=== PATIENT | female | born 1980 | race Caucasian/White ===

== ENCOUNTER 2016-03-31 11:42 | Emergency (ER) | payer MEDICAID ==
[2016-03-31] MEDS ORDERED: 0.9 % SODIUM CHLORIDE 1,000 ML BAG IV ONE (11:53)
--- NOTE | 2016-03-31 11:59 | Emergency Department Record ---
History of Present Illness - General Chief complaint: Head Injury Stated complaint: HEAD PLAIN Time Seen by Provider: 03/31/16 11:52 Source: Patient, Family Mode of Arrival: Ambulatory Limitations: No limitations - History of Present Illness Initial comments: 35 yo female presents with headache, nausea after a seizure yesterday. She has known seizure disorder and she take Zonogran. She has been compliant. She has a seizure about every 1-2 months. She hit her head yesterday and her left knee. Since then she has had a headache, nausea, dizziness and feels slowed. She provides the history without confusion or repeating. Her neurologist is at [facility]. The patient ambulated in to the ED to be seen but she does have some left knee bruising and pain as well MD Complaint: Head injury, Head pain, Other (seizure) Onset/Timin -: Days(s) Mechanism of Injury: Other Location: Occipital, Temporal Previous Trauma to this Area: Yes Place: Home Severity: Moderate Severity scale (1-10): 10 Quality: Aching Consistency: Constant Associated Symptoms: Amnesia, Confusion, Nausea - Related Data Home Medications Medication Instructions Recorded Confirmed Last Taken Albuterol Sulfate 0.083% [Neb] 3 ml NEB .EVERY 4-6 HOURS PRN 06/09/15 09/26/15 1 Day Ago Fluticasone/Salmeterol [Advair 1 each INH ASDIR 06/09/15 09/26/15 1 Day Ago 250-50 Diskus] Zonisamide [Zonisamide] 3 cap PO QPM 09/26/15 09/26/15 1 Day Ago Previous Rx's Medication Instructions Recorded Albuterol Sulfate [Proair Hfa] 1 - 2 puff IH .EVERY 4-6 HOURS PRN 04/29/15 #1 inhaler Naproxen [Naprosyn] 250 mg PO BID #14 tablet 06/16/15 Acetaminophen with Codeine 1 - 2 tab PO Q6H PRN #20 tab 09/26/15 [Tylenol #3] Ondansetron [Zofran Odt] 4 mg PO Q8H #15 tab.rapdis 03/31/16 Allergies/Adverse reactions: Allergies Allergy/AdvReac Type Severity Reaction Status Date / Time No Known Drug Allergies Allergy Verified 03/31/16 11:45 Travel Screening - Travel/Exposure Within Last 30 Days Have you traveled within the last 30 days?: No - Travel/Exposure Within Last Year Have you traveled outside the [place] in the last year?: No - Additonal Travel Details Have you been exposed to anyone with a communicable illness?: No - Travel Symptoms Symptom Screening: None Review of Systems Constitutional: Denies: Chills, Fever, Malaise, Weakness Eyes: Denies: Eye discharge, Eye pain, Photophobia, Vision change ENT: Denies: Congestion, Throat pain Respiratory: Denies: Cough, Dyspnea, Hemoptysis, Stridor, Wheezes Cardiovascular: Denies: Chest pain, Palpitations, Syncope Endocrine: Denies: Fatigue, Polydipsia, Polyuria Gastrointestinal: Reports: Nausea, Vomiting. Denies: Abdominal pain, Diarrhea Genitourinary: Denies: Dysuria, Urgency Musculoskeletal: Reports: Arthralgia. Denies: Back pain, Joint swelling, Myalgia, Neck pain Skin: Denies: Bruising, Change in color, Rash Neurological: Reports: As per HPI, Headache, Seizure, Vertigo. Denies: Confusion, Numbness, Paresthesias, Tingling, Tremors Psychiatric: Denies: Anxiety Hematological/Lymphatic: Denies: Blood Clots, Easy bleeding, Easy bruising, Swollen glands Past Medical History - SOCIAL HISTORY Smoking Status: Current every day smoker Alcohol Use: Occassional Drug Use: None - RESPIRATORY Hx Respiratory Disorders: Yes Hx Asthma: Yes Hx Pneumonia: Yes - CARDIOVASCULAR Hx Cardio Disorders: No - NEURO Hx Neuro Disorders: Yes Hx Seizures: Yes (last one yesterday and the 1-2 months ago) - GI Hx GI Disorders: No - Hx Genitourinary Disorders: No - ENDOCRINE Hx Endocrine Disorders: No - MUSCULOSKELETAL Hx Musculoskeletal Disorders: No - PSYCH Hx Psych Problems: No - HEMATOLOGY/ONCOLOGY Hx Hematology/Oncology Disorders: No Family Medical History Any Significant Family History?: Yes Hx Cancer: Mother Hx Diabetes: Father Physical Exam - General General Appearance: Alert, Oriented x3, Cooperative, No acute distress, Other ( She is alert, somewhat slowed with answers but she is not confused with answers) Limitations: No limitations - Head Head exam: negative: Atraumatic (2cm superficial abrasion left forehead), Normal inspection Head exam detail: Abrasion, Contusion. negative: Harrell's sign, CSF otorrhea, CSF rhinorrhea, General tenderness Image of Face/Head: 1 - 2cm superficial abrasion, tender, mild swelling - Eye Eye exam: Normal appearance, PERRL, EOMI. negative: Conjunctival injection, Nystagmus, Periorbital swelling, Periorbital tenderness, Scleral icterus Pupils: Normal accommodation. negative: Irregular, Miosis, Mydriatic, Unequal - ENT ENT exam: Normal exam, Mucous membranes moist, Normal external ear exam, Normal orophraynx, TM's normal bilaterally Ear exam: Normal external inspection. negative: External canal tenderness Nasal Exam: Normal inspection. negative: Discharge, Sinus tenderness Mouth exam: Normal external inspection, Tongue normal Teeth exam: Normal inspection. negative: Dental caries Throat exam: Normal inspection. negative: Tonsillar erythema, Tonsillar exudate - Neck Neck exam: Normal inspection, Full ROM. negative: Tenderness - Respiratory Respiratory exam: Normal lung sounds bilaterally. negative: Respiratory distress - Cardiovascular Cardiovascular Exam: Regular rate, Normal rhythm, Normal heart sounds - GI/Abdominal GI/Abdominal exam: Soft, Normal bowel sounds. negative: Tenderness - Rectal Rectal exam: Deferred - exam: Deferred - Extremities Extremities exam: Normal inspection, Full ROM, Normal capillary refill. negative: Tenderness Image of Full Body: 1 - medial knee bruising, full ROM, patella intact and not bruised or swollen - Back Back exam: Reports: Normal inspection, Full ROM. Denies: CVA tenderness (R), CVA tenderness (L), Muscle spasm, Paraspinal tenderness, Rash noted, Tenderness , Vertebral tenderness - Neurological Neurological exam: Alert, CN II-XII intact, Oriented X3, Other (slowed but accurate with answers, no confusion, knows family, medical history, medications) . negative: Motor sensory deficit - Psychiatric Psychiatric exam: Depressed - Skin Skin exam: Abrasion Course Vital Signs 03/31/16 11:46 Temperature 98.1 F Pulse Rate 72 Respiratory 14 Rate Blood Pressure 121/80 Pulse Ox 100 - Reevaluation(s) Reevaluation #1: No acute changes on the labs The CBC,CMP and UCG were negative [facility] records were recieved No acute changes on a HCT, Facial CT. Chronic sinusitis. 06/21/15 03/31/16 13:10 Reevaluation #2: On recheck she is alert, speaking in normal jess without hesitation. No signs of confusion. Still with a frontal headache. 03/31/16 13:13 Reevaluation #3: CT scan of the head is negative Knee XR is negative The patient likely has concussion symptoms She was given the results and we discussed concussion symptoms and home care as well as follow up We discussed reasons to return as well. 03/31/16 13:27 Medical Decision Making - Lab Data Result diagrams: 03/31/16 12:00 03/31/16 12:00 Disposition Disposition: Discharge Clinical Impression: Concussion Qualifiers: Encounter type: initial encounter Loss of consciousness presence/duration: without LOC Qualified Code(s): S06.0X0A - Concussion without loss of consciousness, initial encounter Disposition: Home, Self-Care Condition: (1) Good Instructions: Concussion (ED) Additional Instructions: Rest and Stay well hydrated Avoid over stimulation Call your doctor and your neurologist Saturday to follow up this ER visit. Prescriptions: Ondansetron [Zofran Odt] 4 mg PO Q8H #15 tab.rapdis Forms: Patient Portal Access Time of Disposition: 13:28
[2016-03-31] MEDS: ONDANSETRON HCL IV 4 MG/2 ML VIAL IVP ONE ×2 (12:11→14:00)
[2016-03-31 12:14] LABS: BASO % 0.2 % (0-6); EOS % 3.4 % (0-6); GRAN % 62.9 % (47-80); HEMOGLOBIN 12.6 gm/dl (11.6-16.0); LYMPH % 27.8 % (16-45); MEAN CELL VOLUME 92.5 fl (81-97); MEAN CORPUSCULAR HEMOGLOBIN 31.5 pg (27-33); MEAN CORPUSCULAR HGB CONC 34.1 g/dl (32-36); MEAN PLATELET VOLUME 9.6 fl (7.4-10.4); MONO % 5.7 % (0-9); PLATELET COUNT 260 K/uL (130-400); RED CELL DISTRIBUTION WIDTH 12.9 % (11.5-14.5); WHITE BLOOD COUNT W/O DIFF 5.7 K/uL (4.2-12.2)
[2016-03-31 12:26] LABS: ANION GAP 13.9 (7-16); BLOOD UREA NITROGEN 12 mg/dL (7-17); CARBON DIOXIDE 21.1 mmol/L (22-30); CREATININE 0.8 mg/dL (0.52-1.04); EST GLOMERULAR FILTRATION RATE > 60 ml/min; GLUCOSE,RANDOM 86 mg/dL (70-110)
[2016-03-31] MEDS ORDERED: ACETAMINOPHEN 1,000 MG in SODIUM CHLORIDE 1 BAG IVPB ONE (13:14)
[2016-03-31] MEDS ORDERED: ONDANSETRON HCL IV 4 MG/2 ML VIAL IVP ONE (13:59)
--- NOTE | 2016-04-04 10:21 | RADIOLOGY REPORT ---
EXAM: LEFT KNEE, THREE VIEWS HISTORY: FALL. SEIZURE. TECHNIQUE: Three views of the left knee were obtained. FINDINGS: No knee joint effusion. No fracture or malalignment. The joint spaces are maintained. IMPRESSION: NO ACUTE LEFT KNEE ABNORMALITY. JOB NUMBER: [id number] [facility]
--- NOTE | 2016-04-04 10:25 | CT SCAN REPORT ---
EXAM: CT OF THE HEAD WITHOUT CONTRAST HISTORY: FALL. SEIZURE. TECHNIQUE: Routine noncontrast CT images of the head were obtained. Comparison: 06/16/15. FINDINGS: Mild right frontal scalp hematoma. The ventricles, basal cisterns, and sulci are of normal size, shape and configuration. No midline shift or mass effect. The carlin white differentiation is well maintained without evidence of acute ischemia. No intracranial mass or hemorrhage. The orbital contents are unremarkable. The paranasal sinuses and mastoid air cells are clear. IMPRESSION: RIGHT FRONTAL SCALP HEMATOMA. NO ACUTE INTRACRANIAL ABNORMALITY. JOB NUMBER: [id number] [facility]
== END 2016-03-31 14:26 | disposition home or self-care (01) ==
LOC: ER 11:42
DX: S06.0X0A Concussion without loss of consciousness, initial encounter (principal); S80.02XA Contusion of left knee, initial encounter; R11.0 Nausea; R42 Dizziness and giddiness; R41.3 Other amnesia; W19.XXXA Unspecified fall, initial encounter; G40.909 Epilepsy, unspecified, not intractable, without status epilepticus
CPT/HCPCS: 99284 ×2; 96374; 96375; 96361; 85025; 80048; 84703; 73562; 70450; J2405; J7030

== ENCOUNTER 2016-10-15 20:47 | Emergency (ER) | payer MEDICAID ==
--- NOTE | 2016-10-15 21:14 | Emergency Department Record ---
History of Present Illness - General Chief Complaint: Abdominal Pain Stated Complaint: LOWER ABD PAIN L SIDE Time Seen by Provider: 10/15/16 20:55 Source: Patient Mode of Arrival: Ambulatory Limitations: No limitations - History of Present Illness Initial Comments: The patient is here due to abdominal pain for 9 hours. The pain has been constant and is a sharp stabbing pain in the LLQ. It intermittently radiates to the back at times. The patient does have nausea but no vomiting or diarrhea. She denies any dysuria, vaginal discharge, bleeding or any hx of similar problems. MD Complaint: Abdominal pain Onset/Timin -: Hour(s) Location: Suprapubic Radiation: Back Quality: Sharp, Stabbing Consistency: Constant Improves With: Nothing Worsens With: Movement Associated Symptoms: Nausea - Related Data LMP (females 10-50): Last week Home Medications Medication Instructions Recorded Confirmed Last Taken Albuterol Sulfate 0.083% [Neb] 3 ml NEB .EVERY 4-6 HOURS PRN 06/09/15 10/15/16 1 Day Ago ~03/30/16 Brivaracetam [Briviact] 75 mg PO BID 10/15/16 10/15/16 10/14/16 Lamotrigine [Lamictal] 100 mg PO BID 10/15/16 10/15/16 10/14/16 Paroxetine HCl [Paxil] 100 mg PO DAILY 10/15/16 10/15/16 10/14/16 Previous Rx's Medication Instructions Recorded Albuterol Sulfate [Proair Hfa] 1 - 2 puff IH .EVERY 4-6 HOURS PRN 04/29/15 #1 inhaler Naproxen [Naprosyn] 250 mg PO BID #14 tablet 06/16/15 Metronidazole [Flagyl] 500 mg PO BID #14 tablet 10/15/16 Allergies Allergy/AdvReac Type Severity Reaction Status Date / Time No Known Drug Allergies Allergy Verified 03/31/16 11:45 Travel Screening - Travel/Exposure Within Last 30 Days Have you traveled within the last 30 days?: No - Travel Symptoms Symptom Screening: None Review of Systems Constitutional: Denies: Chills, Fever Eyes: Denies: Eye discharge ENT: Denies: Congestion Respiratory: Denies: Cough, Dyspnea Past Medical History - SOCIAL HISTORY Smoking Status: Current every day smoker - RESPIRATORY Hx Respiratory Disorders: Yes Hx Asthma: Yes Hx Pneumonia: Yes - CARDIOVASCULAR Hx Cardio Disorders: No - NEURO Hx Neuro Disorders: Yes Hx Seizures: Yes (10/15/16-last sz 1.5wks ago) - GI Hx GI Disorders: No - Hx Genitourinary Disorders: No - ENDOCRINE Hx Endocrine Disorders: No - MUSCULOSKELETAL Hx Musculoskeletal Disorders: No - PSYCH Hx Psych Problems: No - HEMATOLOGY/ONCOLOGY Hx Hematology/Oncology Disorders: No Family Medical History Any Significant Family History?: Yes Hx Cancer: Mother Hx Diabetes: Father Physical Exam - General General Appearance: Alert, Oriented x3, Cooperative, No acute distress - Head Head exam: Atraumatic, Normocephalic, Normal inspection - Eye Eye exam: Normal appearance, PERRL - Neck Neck exam: Normal inspection, Full ROM. negative: Tenderness - Respiratory Respiratory exam: Normal lung sounds bilaterally. negative: Respiratory distress - Cardiovascular Cardiovascular Exam: Regular rate, Normal rhythm, Normal heart sounds - GI/Abdominal GI/Abdominal exam: Soft, Normal bowel sounds, Tenderness (There is mild tenderness in the LLQ but the abdomen is very soft.). negative: Distended, Rebound, Rigid - exam: Adnexal tenderness (L) (mild.), Normal bimanual exam, Normal external exam, Normal speculum exam. negative: Abnormal external exam, Adnexal mass (L) , Adnexal mass (R), Adnexal tenderness (R), Cervical discharge, cervical motion tenderness, Enlarged uterus, Vaginal bleeding, Vaginal discharge, Vaginal erythema - Extremities Extremities exam: Normal inspection, Full ROM, Normal capillary refill. negative: Tenderness - Neurological Neurological exam: Alert, Normal gait. negative: Abnormal gait, Motor sensory deficit Course Vital Signs 10/15/16 20:54 Temperature 98.3 F Pulse Rate [ 84 Pulse Ox Probe] Respiratory 20 Rate Blood Pressure 126/81 [Right Thigh] Pulse Ox 100 - Reevaluation(s) Reevaluation #1: The patient is doing very well at this time. Her pain is much improved and she is resting comfortably. I explained to her that her tests are all WNL's including the CT. I also explained to her that I am concerned that she may have a L ovary torsion even though the ovary does appear normal on CT. Due to that fact I did recommend transfer to [facility] for an emergent pelvic US which we are unable to perform here. The risk of NOT being transferred is that if it is a torsion by waiting the ovary could and she may need it removed. The patient understands the risks and would like to wait and be seen here at [facility] in the ED in the morning for the US. She fully understands that by waiting she may need the ovary removed which could be a bigger surgery than just de-torsing the ovary. The patient states since she is feeling a lot better now she would like to wait and if the pain worsens tonight she will proceed to [facility] for the US. 10/15/16 22:47 Medical Decision Making - Lab Data Result diagrams: 10/15/16 21:25 10/15/16 21:28 Disposition Disposition: Discharge Clinical Impression: Pelvic pain Disposition: Home, Self-Care Condition: (1) Good Instructions: Abdominal Pain (ED) Additional Instructions: Please use your home Naprosyn for pain along with the [place] if needed. Please return to the ER at 9am for a 10am Ultrasound. Please drink plenty of fluids prior so your bladder may be full for the test. Please return to the ER sooner for any increased pain, fever, or vomiting. Take the Flagyl as directed. Prescriptions: Metronidazole [Flagyl] 500 mg PO BID #14 tablet Forms: Patient Portal Access Time of Disposition: 22:42 Quality - Quality Measures Quality Measures: N/A - Blood Pressure Screening View Details: Yes Blood Pressure Classification: Normal BP Reading Systolic Measurement: 114 Diastolic Measurement: 73 Screening for High Blood Pressure: < Normal BP, F/U Not Required > [G8783] Normal BP Follow-up Interventions: No follow-up required
[2016-10-15] MEDS: 0.9 % SODIUM CHLORIDE 1,000 ML BAG IV ONE (21:29)
[2016-10-15] MEDS: ONDANSETRON HCL IV 4 MG/2 ML VIAL IV ONE (21:29)
[2016-10-15 21:33] LABS: URINE APPEARANCE CLEAR; URINE BILIRUBIN NEGATIVE (NEGATIVE); URINE BLOOD NEGATIVE (NEGATIVE); URINE COLOR YELLOW; URINE GLUCOSE (UA) NEGATIVE (NEGATIVE); URINE KETONE NEGATIVE (NEGATIVE); URINE LEUKOCYTE ESTERASE NEGATIVE (NEGATIVE); URINE NITRITE NEGATIVE (NEGATIVE); URINE PROTEIN NEGATIVE (NEGATIVE); URINE UROBILINOGEN 0.2 E.U./dL (0.20 - 1.00)
[2016-10-15 21:34] LABS: HCG,QUALITATIVE URINE NEGATIVE (NEGATIVE)
[2016-10-15 21:35] LABS: BASO % 0.2 % (0-6); GRAN % 50.6 % (47-80); HEMATOCRIT 35.5 % (35.0-47.0); HEMOGLOBIN 11.8 gm/dl (11.6-16.0); MEAN CELL VOLUME 90.8 fl (81-97); MEAN CORPUSCULAR HEMOGLOBIN 30.2 pg (27-33); MEAN CORPUSCULAR HGB CONC 33.2 g/dl (32-36); MEAN PLATELET VOLUME 9.5 fl (7.4-10.4); MONO % 7.2 % (0-9); PLATELET COUNT 251 K/uL (130-400); RED BLOOD COUNT 3.91 M/uL (3.80-5.40); RED CELL DISTRIBUTION WIDTH 13.9 % (11.5-14.5); WHITE BLOOD COUNT W/O DIFF 5.4 K/uL (4.2-12.2)
[2016-10-15] MEDS: KETOROLAC 30 MG/ML VIAL IVP ONE (21:41)
[2016-10-15 21:43] LABS: ANION GAP 10.5 (7-16); BLOOD UREA NITROGEN 15 mg/dL (7-17); CARBON DIOXIDE 25.5 mmol/L (22-30); CREATININE 0.7 mg/dL (0.52-1.04); EST GLOMERULAR FILTRATION RATE > 60 ml/min; GLUCOSE,RANDOM 90 mg/dL (70-110)
[2016-10-15] MEDS: HYDROMORPHONE HCL 1 MG/ML CPJ IVP ONE (22:23)
[2016-10-15] MEDS: HYDROCODONE/APAP 5/325MG TABLET PO ONE (22:51)
[2016-10-15] MEDS: ONDANSETRON 4 MG ODT TABLET SL ONE (22:53)
--- NOTE | 2016-10-17 00:22 | CT SCAN REPORT ---
EXAM: CT SCAN ABDOMEN/PELVIS WO CONTRAST HISTORY: LOW ABDOMINAL PAIN. TECHNIQUE: SEQUENTIAL AXIAL IMAGES WERE OBTAINED FROM THE DIAPHRAGMS THROUGH THE ISCHIORECTAL FOSSA WITHOUT INTRAVENOUS OR ORAL CONTRAST ADMINISTRATION. FINDINGS: Visualized lung bases appear normal. The non-opacified liver, gallbladder, pancreas, and spleen appear normal. The adrenal glands and kidneys appear normal. There are no CT findings suggestive of obstructive uropathy. The small bowel appears normal. The appendix is visualized and appears normal. The colon appears normal. There is right adnexal cyst measuring 2.6 cm. The uterus appears normal. The urinary bladder appears normal. The osseous structures are normal. IMPRESSION: NO ACUTE ABDOMINAL OR PELVIC DISEASE PROCESS. JOB NUMBER: [id number] [facility]
== END 2016-10-15 23:06 | disposition home or self-care (01) ==
LOC: ER 20:47
DX: R10.2 Pelvic and perineal pain (principal); R11.0 Nausea; R10.32 Left lower quadrant pain
CPT/HCPCS: 74176; 80048; 81003; 81025; 85025; 87210; 96374; 96375; 99284; J1170; J1885; J2405; J7030

== ENCOUNTER 2017-01-07 12:08 | Emergency (ER) | payer MEDICAID ==
--- NOTE | 2017-01-07 12:36 | Emergency Department Record ---
History of Present Illness - General Chief complaint: ENT Stated complaint: SORE THROAT Time Seen by Provider: 01/07/17 12:23 Source: Patient Mode of Arrival: Ambulatory Limitations: No limitations - History of Present Illness Initial comments: The patient has had a moderate ST for 3 days. She is having some mild ear pain, [place], neck aching but no fever, cough, or runny nose. Her son has the same illness. MD complaint: Sore throat Onset/Timin -: Days(s) Location: R ear, L ear, Throat Severity: Moderate Severity scale (1-10): 6 Quality: Aching Consistency: Constant Improves with: None Worsens with: None Associated Symptoms: Fever, Pain with swallowing, Sore throat - Related Data Previous Rx's Medication Instructions Recorded Albuterol Sulfate [Proair Hfa] 1 - 2 puff IH .EVERY 4-6 HOURS PRN 04/29/15 #1 inhaler Naproxen [Naprosyn] 250 mg PO BID #14 tablet 06/16/15 Metronidazole [Flagyl] 500 mg PO BID #14 tablet 10/15/16 Cephalexin [Keflex] 500 mg PO TID #21 cap 01/07/17 Allergies Allergy/AdvReac Type Severity Reaction Status Date / Time No Known Drug Allergies Allergy Verified 01/07/17 12:17 Travel Screening - Travel/Exposure Within Last 30 Days Have you traveled within the last 30 days?: No Review of Systems Constitutional: Denies: Chills, Fever Eyes: Denies: Eye discharge ENT: Denies: Congestion Respiratory: Denies: Cough, Dyspnea Past Medical History - SOCIAL HISTORY Smoking Status: Current every day smoker Alcohol Use: None Drug Use: None - RESPIRATORY Hx Respiratory Disorders: Yes Hx Asthma: Yes Hx Pneumonia: Yes - CARDIOVASCULAR Hx Cardio Disorders: No - NEURO Hx Neuro Disorders: Yes Hx Seizures: Yes - GI Hx GI Disorders: No - Hx Genitourinary Disorders: No - ENDOCRINE Hx Endocrine Disorders: No - MUSCULOSKELETAL Hx Musculoskeletal Disorders: No - PSYCH Hx Psych Problems: No - HEMATOLOGY/ONCOLOGY Hx Hematology/Oncology Disorders: No Family Medical History Any Significant Family History?: Yes Hx Cancer: Mother Hx Diabetes: Father Physical Exam - General General Appearance: Alert, Oriented x3, Cooperative, No acute distress - Head Head exam: Atraumatic, Normocephalic, Normal inspection - Eye Eye exam: Normal appearance, PERRL - ENT ENT exam: Mucous membranes moist, Normal external ear exam, TM's normal bilaterally. negative: Normal exam, Normal orophraynx Ear exam: Normal external inspection. negative: External canal tenderness Nasal Exam: Normal inspection. negative: Discharge Throat exam: Tonsillar erythema. negative: Normal inspection, Tonsillomegaly, Tonsillar exudate, R peritonsillar mass, L peritonsillar mass - Neck Neck exam: Normal inspection, Full ROM, Tenderness (There is mild diffuse bilateral tenderness but no swelling, erythema, or enlarged lymph nodes.). negative: Lymphadenopathy, Meningismus - Respiratory Respiratory exam: Normal lung sounds bilaterally. negative: Respiratory distress - Cardiovascular Cardiovascular Exam: Regular rate, Normal rhythm, Normal heart sounds - GI/Abdominal GI/Abdominal exam: Soft, Normal bowel sounds. negative: Tenderness - Extremities Extremities exam: Normal inspection Course Vital Signs 01/07/17 12:18 Temperature 98.9 F Pulse Rate 77 Respiratory 18 Rate Blood Pressure 127/66 Pulse Ox 97 - Reevaluation(s) Reevaluation #1: I did discuss the positive Strep test with the patient and the need for F/U if not better. 01/07/17 12:54 Medical Decision Making - Data Complexity MDM Data: Labs Ordered and/or Reviewed (Strep test Pos.) Disposition Disposition: Discharge Clinical Impression: Strep sore throat Disposition: Home, Self-Care Condition: (1) Good Instructions: Strep Throat (ED) Additional Instructions: Please take Tylenol or Motrin for pain. Please take the Keflex as directed. Please see your PCP for recheck later this week if not better and return to the ER if worse. Prescriptions: Cephalexin [Keflex] 500 mg PO TID #21 cap Forms: Patient Portal Access Time of Disposition: 12:56 Quality - Quality Measures Quality Measures: N/A - Blood Pressure Screening View Details: Yes Does Patient Have Any of the Following: No Blood Pressure Classification: Pre-Hypertensive BP Reading Systolic Measurement: 127 Diastolic Measurement: 66 Screening for High Blood Pressure: < Pre-Hypertensive BP, F/U Documented > [ G8950] Pre-Hypertensive Follow-up Interventions: Referral to alternative/primary care provider.
== END 2017-01-07 13:06 | disposition home or self-care (01) ==
LOC: ER 12:08
DX: J02.0 Streptococcal pharyngitis (principal); F17.210 Nicotine dependence, cigarettes, uncomplicated
CPT/HCPCS: 87880; 99282

== ENCOUNTER 2017-02-20 10:53 | Emergency (ER) | payer MEDICAID ==
--- NOTE | 2017-02-20 11:30 | Emergency Department Record ---
History of Present Illness - General Chief Complaint: General Stated Complaint: FACIAL INJURY AFTER SEIZURE Time Seen by Provider: 02/20/17 11:04 Mode of Arrival: Ambulatory - History of Present Illness Initial Comments: siezure yesterday and bruising on the right foreheada nd periorbital area and right conjunctivea is red with FB sensation. visual acuity right 20/100 and left eye is 20/25 - Related Data Home Medications: Previous Rx's Medication Instructions Recorded Sulfacetamide Sodium [Bleph-10] 1 - 2 drop AFFEYE QID #5 ml 02/20/17 Allergies/Adverse Reactions: Allergies Allergy/AdvReac Type Severity Reaction Status Date / Time No Known Drug Allergies Allergy Verified 01/07/17 12:17 Travel Screening - Travel/Exposure Within Last 30 Days Have you traveled within the last 30 days?: No Review of Systems Reviewed: No additional complaints except as noted below Constitutional: Reports: As per HPI. Denies: Chills, Fever, Malaise, Night sweats, Weakness, Weight change Eyes: Reports: As per HPI. Denies: Eye discharge, Eye pain, Photophobia, Vision change ENT: Reports: As per HPI, Other (slow speach). Denies: Congestion, Dental pain , Ear pain, Epistaxis, Hearing loss, Throat pain Respiratory: Reports: As per HPI. Denies: Cough, Dyspnea, Hemoptysis, Stridor, Wheezes Cardiovascular: Reports: As per HPI. Denies: Arrhythmia, Chest pain, Dyspnea on exertion, Edema, Murmurs, Orthopnea, Palpitations, Paroxysmal nocturnal dyspnea, Rheumatic Fever, Syncope Endocrine: Reports: As per HPI. Denies: Fatigue, Heat or cold intolerance, Polydipsia, Polyuria Gastrointestinal: Reports: As per HPI. Denies: Abdominal pain, Constipation, Diarrhea, Hematemesis, Hematochezia, Melena, Nausea, Vomiting Genitourinary: Reports: As per HPI. Denies: Abnormal menses, Discharge, Dyspareunia, Dysuria, Frequency, Hematuria, Incontinence, Retention, Urgency Musculoskeletal: Reports: As per HPI. Denies: Arthralgia, Back pain, Gout, Joint swelling, Myalgia, Neck pain Skin: Reports: As per HPI. Denies: Bruising, Change in color, Change in hair/ nails, Lesions, Pruritus, Rash Neurological: Reports: As per HPI. Denies: Abnormal gait, Confusion, Headache, Numbness, Paresthesias, Seizure, Tingling, Tremors, Vertigo, Weakness Psychiatric: Reports: As per HPI. Denies: Anxiety, Auditory hallucinations, Depression, Homicidal thoughts, Suicidal thoughts, Visual hallucinations Hematological/Lymphatic: Reports: As per HPI. Denies: Anemia, Blood Clots, Easy bleeding, Easy bruising, Swollen glands Past Medical History - SOCIAL HISTORY Smoking Status: Current every day smoker Alcohol Use: None Drug Use: None - RESPIRATORY Hx Respiratory Disorders: Yes Hx Asthma: Yes Hx Pneumonia: Yes - CARDIOVASCULAR Hx Cardio Disorders: No - NEURO Hx Neuro Disorders: Yes Hx Seizures: Yes (Last February 2017) - GI Hx GI Disorders: No - Hx Genitourinary Disorders: No - ENDOCRINE Hx Endocrine Disorders: No - MUSCULOSKELETAL Hx Musculoskeletal Disorders: No - PSYCH Hx Psych Problems: No - HEMATOLOGY/ONCOLOGY Hx Hematology/Oncology Disorders: No Family Medical History Any Significant Family History?: Yes Hx Cancer: Mother Hx Diabetes: Father Physical Exam - General General Appearance: Alert, Oriented x3, Cooperative, No acute distress, Other ( right periorbital swelling) - Head Head exam: Normal inspection - Eye Eye exam: Normal appearance, PERRL, Conjunctival injection, Periorbital swelling , Periorbital tenderness, Other (tearing) Pupils: Normal accommodation - ENT ENT exam: Normal exam, Mucous membranes moist, Normal external ear exam, Normal orophraynx, TM's normal bilaterally Ear exam: Normal external inspection. negative: External canal tenderness Nasal Exam: Normal inspection. negative: Discharge, Sinus tenderness Mouth exam: Normal external inspection, Tongue normal Teeth exam: Normal inspection. negative: Dental caries Throat exam: Normal inspection. negative: Tonsillar erythema, Tonsillar exudate - Neck Neck exam: Normal inspection, Full ROM. negative: Tenderness - Respiratory Respiratory exam: Normal lung sounds bilaterally. negative: Respiratory distress - Cardiovascular Cardiovascular Exam: Regular rate, Normal rhythm, Normal heart sounds - GI/Abdominal GI/Abdominal exam: Soft, Normal bowel sounds. negative: Tenderness - Rectal Rectal exam: Deferred - exam: Deferred - Extremities Extremities exam: Normal inspection, Full ROM, Normal capillary refill. negative: Tenderness - Back Back exam: Reports: Normal inspection, Full ROM. Denies: Muscle spasm, Rash noted, Tenderness - Neurological Neurological exam: Alert, Normal gait, Oriented X3, Reflexes normal - Psychiatric Psychiatric exam: Normal affect, Normal mood - Skin Skin exam: Dry, Intact, Normal color, Warm Course Vital Signs 02/20/17 10:55 Temperature 97.8 F Pulse Rate 88 Respiratory 18 Rate Blood Pressure 134/72 Pulse Ox 100 - Reevaluation(s) Reevaluation #1: flurescein staining right eye inferior conjuctiveal area and cornea no uptake, 02/20/17 12:34 Medical Decision Making - Data Complexity MDM Data: Labs Ordered and/or Reviewed, X-Ray Ordered and/or Reviewed (CT of head and face negative for acute changes) - Lab Data Result diagrams: 02/20/17 11:35 02/20/17 11:35 Disposition Clinical Impression: Seizure disorder, Decreased visual acuity Corneal abrasion, right Qualifiers: Encounter type: initial encounter Qualified Code(s): S05.01XA - Injury of conjunctiva and corneal abrasion without foreign body, right eye, initial encounter Periorbital contusion of right eye Qualifiers: Encounter type: initial encounter Qualified Code(s): S05.11XA - Contusion of eyeball and orbital tissues, right eye, initial encounter Disposition: Home, Self-Care Condition: (1) Good Instructions: Head Injury (ED) Additional Instructions: follow up with Dr Kaur tomorrow if possible Prescriptions: Sulfacetamide Sodium [Bleph-10] 1 - 2 drop AFFEYE QID #5 ml Forms: Patient Portal Access Time of Disposition: 12:41 Quality - Quality Measures Quality Measures: N/A - Blood Pressure Screening Does Patient Have Any of the Following: No Blood Pressure Classification: Pre-Hypertensive BP Reading Systolic Measurement: 134 Diastolic Measurement: 72 Screening for High Blood Pressure: < Pre-Hypertensive BP, F/U Documented > [ G8950] Pre-Hypertensive Follow-up Interventions: Referral to alternative/primary care provider.
[2017-02-20 11:44] LABS: BASO % 0.2 % (0-6); EOS % 1.8 % (0-6); GRAN % 64.4 % (47-80); HEMATOCRIT 37.3 % (35.0-47.0); HEMOGLOBIN 12.6 gm/dl (11.6-16.0); LYMPH % 27.9 % (16-45); MEAN CELL VOLUME 90.3 fl (81-97); MEAN CORPUSCULAR HEMOGLOBIN 30.5 pg (27-33); MEAN CORPUSCULAR HGB CONC 33.8 g/dl (32-36); MEAN PLATELET VOLUME 9.3 fl (7.4-10.4); MONO % 5.7 % (0-9); PLATELET COUNT 248 K/uL (130-400); RED BLOOD COUNT 4.13 M/uL (3.80-5.40); RED CELL DISTRIBUTION WIDTH 13.6 % (11.5-14.5); WHITE BLOOD COUNT W/O DIFF 6.2 K/uL (4.2-12.2)
[2017-02-20 11:57] LABS: BLOOD UREA NITROGEN 12 mg/dL (6-20); CREATININE 0.7 mg/dL (0.5-0.9); EST GLOMERULAR FILTRATION RATE > 60 mL/min
[2017-02-20 12:00] LABS: GLUCOSE,RANDOM 96 mg/dL (74-109)
--- NOTE | 2017-02-21 08:03 | CT SCAN REPORT ---
EXAM: CT OF THE HEAD WITHOUT CONTRAST HISTORY: SEIZURE. FALL. TECHNIQUE: Routine noncontrast CT examination of the head was performed. Comparison: CT of the head without contrast dated 03/31/16. FINDINGS: The ventricles and subarachnoid spaces are normal in size. No area of abnormally increased or decreased attenuation is noted throughout the brain substance. No new abnormal extraaxial fluid collection nor skull fracture is seen. A small left choroidal fissure cyst is redemonstrated, stable. This measures 5 mm in diameter. The visualized paranasal sinuses and mastoid air cells are clear. There is mild soft tissue swelling in the right infraorbital region. IMPRESSION: 1. NO ACUTE INTRACRANIAL ABNORMALITY NOR SKULL FRACTURE WITHOUT CHANGE IN APPEARANCE OF THE BRAIN SINCE 03/31/16. 2. MILD SOFT TISSUE SWELLING IN THE RIGHT PERIORBITAL/INFRAORBITAL REGION. JOB NUMBER: [id number] MTDD
--- NOTE | 2017-02-21 08:09 | CT SCAN REPORT ---
EXAM: CT OF THE FACIAL BONES WITHOUT CONTRAST HISTORY: SEIZURE. FALL WITH TRAUMA TO RIGHT SIDE OF FACE. TECHNIQUE: Thin collimation helical CT examination of the facial bones was performed in the axial plane without intravenous contrast. Coronal and sagittal reformatted images are generated and reviewed. Comparison: Same day CT of the head. CT of the head without contrast dated . FINDINGS: The osseous structures are normally mineralized. No acute facial bone fracture is seen. The paranasal sinuses are well developed with the exception of hypoplasia of the right frontal sinus. There is minimal mucosal thickening in each maxillary sinus. The paranasal sinuses are otherwise well aerated. The ostiomeatal complexes, frontal recesses, and sphenoethmoidal recesses are widely patent. The ocular globes are intact and symmetrically positioned. The retrobulbar fat is clear. The optic nerves and extraocular muscles are symmetric and normal in appearance. Mild right periorbital/infraorbital soft tissue swelling is present. No subcutaneous emphysema or foreign body is seen. There is mild rightward deviation of the superior aspect of the nasal septum, developmental. Dental caries is suggested in several teeth, right greater than left. IMPRESSION: 1. MILD RIGHT PERIORBITAL/INFRAORBITAL SOFT TISSUE SWELLING. 2. NO FACIAL BONE FRACTURE. 3. MINOR MUCOSAL THICKENING IN THE MAXILLARY SINUSES. JOB NUMBER: [id number] AND [id number] [facility]
== END 2017-02-20 12:51 | disposition home or self-care (01) ==
LOC: ER 10:53
DX: S05.01XA Injury of conjunctiva and corneal abrasion without foreign body, right eye, initial encounter (principal); S05.11XA Contusion of eyeball and orbital tissues, right eye, initial encounter; G40.909 Epilepsy, unspecified, not intractable, without status epilepticus; H54.7 Unspecified visual loss; W19.XXXA Unspecified fall, initial encounter
CPT/HCPCS: 70450; 70486; 80048; 85025; 99283; 99284

== ENCOUNTER 2018-07-14 12:22 | Emergency (ER) | payer MEDICAID, MEDICARE ==
[2018-07-14] MEDS ORDERED: ALBUTEROL SULFATE (0.083%) 2.5 MG/3 ML NEB INH ONE (12:36)
--- NOTE | 2018-07-14 12:40 | Emergency Department Record ---
History of Present Illness - General Chief complaint: Edema Stated complaint: swollen feet and hands, chest pressure Time Seen by Provider: 07/14/18 12:30 Source: Patient Mode of Arrival: Ambulatory Limitations: No limitations - History of Present Illness Initial comments: The patient is here due to not feeling well for 3 days. She has had a dry cough with mild chest spasms mainly when coughing. She does feel mildly SOB at times but denies any chest pain, fever, chills, or SOB. The patient also has had the feeling that her hands and feet are swollen. She denies any calf or thigh pain or any recent travel. MD Complaint: Extremity swelling Onset/Timin -: Days(s) Location: Bilateral, Foot, Hand History of Same: No Radiation: None Severity scale (1-10): 7 Quality: Dull Consistency: Intermittent Improves with: Nothing Worsens with: Nothing Associated Symptoms: Denies other symptoms - Related Data Home Medications Medication Instructions Recorded Confirmed Last Taken Albuterol Sulfate [Proair Hfa] 1 puff IH DAILY 07/14/18 07/14/18 Unknown Fremanezumab-Vfrm [Ajovy] 225 mg IM MONTHLY 07/14/18 07/14/18 Unknown Zonisamide 100 mg PO DAILY 07/14/18 07/14/18 Unknown Previous Rx's Medication Instructions Recorded Albuterol Sulfate [Proair Hfa] 2 puff IH QID PRN #1 inhaler 07/14/18 Prednisone [Prednisone 20Mg] 40 mg PO DAILY #10 tab 07/14/18 Allergies Allergy/AdvReac Type Severity Reaction Status Date / Time No Known Drug Allergies Allergy Verified 01/07/17 12:17 Travel Screening - Travel/Exposure Within Last 30 Days Have you traveled within the last 30 days?: No Review of Systems Constitutional: Denies: Chills, Fever Eyes: Denies: Eye discharge ENT: Reports: Congestion Respiratory: Reports: Cough. Denies: Dyspnea, Hemoptysis Cardiovascular: Reports: Dyspnea on exertion. Denies: Arrhythmia, Chest pain, Orthopnea Endocrine: Reports: Fatigue Gastrointestinal: Denies: Nausea Genitourinary: Denies: Dysuria Musculoskeletal: Denies: Arthralgia Skin: Denies: Bruising Past Medical History - SOCIAL HISTORY Smoking Status: Current every day smoker Alcohol Use: Rare Drug Use Detail:: Marijuana - RESPIRATORY Hx Respiratory Disorders: Yes Hx Asthma: Yes Hx Pneumonia: Yes - CARDIOVASCULAR Hx Cardio Disorders: No - NEURO Hx Neuro Disorders: Yes Hx Seizures: Yes (Last February 2017) - GI Hx GI Disorders: No - Hx Genitourinary Disorders: No - ENDOCRINE Hx Endocrine Disorders: No - MUSCULOSKELETAL Hx Musculoskeletal Disorders: No - PSYCH Hx Psych Problems: No - HEMATOLOGY/ONCOLOGY Hx Hematology/Oncology Disorders: No Family Medical History Any Significant Family History?: Yes Hx Cancer: Mother Hx Diabetes: Father Physical Exam - General General Appearance: Alert, Oriented x3, Cooperative, No acute distress - Head Head exam: Atraumatic, Normocephalic, Normal inspection - Eye Eye exam: Normal appearance, PERRL, EOMI. negative: Conjunctival injection - ENT Throat exam: Normal inspection. negative: Tonsillar erythema, Tonsillar exudate - Neck Neck exam: Normal inspection, Full ROM. negative: Tenderness - Respiratory Respiratory exam: Normal lung sounds bilaterally. negative: Rales, Respiratory distress, Rhonchi, Stridor, Wheezes - Cardiovascular Cardiovascular Exam: Regular rate, Normal rhythm, Normal heart sounds - GI/Abdominal GI/Abdominal exam: Soft (morbid obesity.), Normal bowel sounds. negative: Tenderness - Extremities Extremities exam: Normal inspection, Full ROM, Normal capillary refill. negative: Calf tenderness, Joint swelling, Pedal edema, Tenderness - Back Back exam: Denies: Vertebral tenderness - Neurological Neurological exam: Alert, Normal gait. negative: Abnormal gait, Motor sensory deficit - Psychiatric Psychiatric exam: negative: Anxious Course Vital Signs 07/14/18 12:26 Temperature 98.4 F Pulse Rate 102 H Respiratory 18 Rate Blood Pressure 150/85 Pulse Ox 98 - Reevaluation(s) Reevaluation #1: The patient is doing very well at this time. I did explain to her that her workup is all normal at this time. She is resting comfortably with no pain or SOB presently. We will discharge her on a short course of Prednisone and will have the patient use her inhaller for the next week. 07/14/18 14:12 Medical Decision Making - Data Complexity MDM Data: Labs Ordered and/or Reviewed, X-Ray Ordered and/or Reviewed, EKG Ordered and/or Reviewed - Lab Data Result diagrams: 07/14/18 12:40 07/14/18 12:40 - EKG Data -: EKG Interpreted by Me EKG: No Acute Changes, Normal EKG - Radiology Data Radiology results: Report reviewed (CXR: Neg.) Disposition Disposition: Discharge Clinical Impression: URI (upper respiratory infection) Qualifiers: URI type: unspecified URI Qualified Code(s): J06.9 - Acute upper respiratory infection, unspecified Disposition: Home, Self-Care Condition: (2) Stable Instructions: Upper Respiratory Infection (ED) Additional Instructions: Please continue your regular medicines and please start the albuterol and Prednisone. Please see your family doctor later this week for recheck. Return to the ER for any worsening symptoms. Prescriptions: Albuterol Sulfate [Proair Hfa] 2 puff IH QID PRN #1 inhaler PRN Reason: Cough And Difficulty Breathing Prednisone [Prednisone 20Mg] 40 mg PO DAILY #10 tab Forms: Patient Portal Access Time of Disposition: 14:16 Quality - Quality Measures Quality Measures: N/A - Blood Pressure Screening View Details: Yes Does Patient Have Any of the Following: No Blood Pressure Classification: Pre-Hypertensive BP Reading Systolic Measurement: 150 Diastolic Measurement: 85 Screening for High Blood Pressure: < Pre-Hypertensive BP, F/U Documented > [ G8950] Pre-Hypertensive Follow-up Interventions: Referral to alternative/primary care provider.
[2018-07-14 12:47] LABS: BASO % 0.1 % (0-6); EOS % 4.3 % (0-6); GRAN % 60.4 % (47-80); HEMATOCRIT 39.1 % (35.0-47.0); HEMOGLOBIN 13.3 gm/dl (11.6-16.0); LYMPH % 29.4 % (16-45); MEAN CELL VOLUME 89.9 fl (81-97); MEAN CORPUSCULAR HEMOGLOBIN 30.6 pg (27-33); MEAN PLATELET VOLUME 9.2 fl (7.4-10.4); MONO % 5.8 % (0-9); PLATELET COUNT 321 K/uL (130-400); RED BLOOD COUNT 4.35 M/uL (3.80-5.40); RED CELL DISTRIBUTION WIDTH 13.6 % (11.5-14.5); WHITE BLOOD COUNT W/O DIFF 6.7 K/uL (4.2-12.2)
[2018-07-14 13:01] LABS: BLOOD UREA NITROGEN 13 mg/dL (6-20); CREATININE 0.7 mg/dL (0.5-0.9); EST GLOMERULAR FILTRATION RATE > 60 mL/min
[2018-07-14 13:02] LABS: TOTAL PROTEIN 7.4 g/dL (6.6-8.7)
[2018-07-14 13:04] LABS: GLUCOSE,RANDOM 82 mg/dL (74-109)
[2018-07-14 13:07] LABS: ALB/GLOB RATIO 1.2 (1.1-1.8); ALBUMIN 4.1 g/dL (4.0-5.0); ALKALINE PHOSPHATASE 54 U/L (35-104); ALT/SGPT 13 U/L (<33); AST/SGOT 12 U/L (10.0-35.0)
[2018-07-14 13:09] LABS: NTpro B-NATRIURETIC PEPTIDE 36.87 pg/mL (<125)
[2018-07-14 13:57] LABS: URINE APPEARANCE CLEAR; URINE BILIRUBIN NEGATIVE (NEGATIVE); URINE BLOOD NEGATIVE (NEGATIVE); URINE COLOR YELLOW; URINE GLUCOSE (UA) NEGATIVE (NEGATIVE); URINE KETONE NEGATIVE (NEGATIVE); URINE LEUKOCYTE ESTERASE NEGATIVE (NEGATIVE); URINE NITRITE NEGATIVE (NEGATIVE); URINE PROTEIN NEGATIVE (NEGATIVE); URINE UROBILINOGEN 0.2 E.U./dL (0.20 - 1.00)
[2018-07-14 14:00] LABS: HCG,QUALITATIVE URINE NEGATIVE (NEGATIVE)
--- NOTE | 2018-07-15 13:06 | RADIOLOGY REPORT ---
EXAM: CHEST, TWO VIEWS HISTORY: FEVER, CHEST PAIN, COUGH. TECHNIQUE: Two views of the chest were obtained. Comparison: Chest radiograph 06/16/15. FINDINGS: The cardiac silhouette is within normal size limits. No focal consolidation, pleural effusion, or pneumothorax. IMPRESSION: NO ACUTE LUNG FINDINGS. JOB NUMBER: [id number] MTDD
== END 2018-07-14 14:24 | disposition home or self-care (01) ==
LOC: ER 12:22
DX: J06.9 Acute upper respiratory infection, unspecified (principal); R60.0 Localized edema; R07.89 Other chest pain; R05 Cough; F17.210 Nicotine dependence, cigarettes, uncomplicated
CPT/HCPCS: 71046; 80053; 81003; 81025; 83880; 84484; 85025; 85379; 93005; 93010; 94640; 99284; J7613

== ENCOUNTER 2019-04-13 08:38 | Emergency (ER) | payer MEDICARE ==
[2019-04-13 09:06] LABS: URINE APPEARANCE CLEAR; URINE BILIRUBIN NEGATIVE (NEGATIVE); URINE BLOOD NEGATIVE (NEGATIVE); URINE COLOR YELLOW; URINE GLUCOSE (UA) NEGATIVE (NEGATIVE); URINE KETONE NEGATIVE (NEGATIVE); URINE LEUKOCYTE ESTERASE NEGATIVE (NEGATIVE); URINE NITRITE NEGATIVE (NEGATIVE); URINE PROTEIN NEGATIVE (NEGATIVE); URINE UROBILINOGEN 0.2 E.U./dL (0.20 - 1.00)
[2019-04-13] MEDS ORDERED: 0.9 % SODIUM CHLORIDE 1,000 ML BAG IV ONE (09:20)
[2019-04-13] MEDS ORDERED: FENTANYL PF 100MCG/2ML VIAL IVP ONE (09:26)
[2019-04-13] MEDS ORDERED: ONDANSETRON HCL IV 4 MG/2 ML VIAL IVP ONE (09:26)
--- NOTE | 2019-04-13 09:26 | Emergency Department Record ---
History of Present Illness - General Chief Complaint: Abdominal Pain Stated Complaint: ABD PAIN Time Seen by Provider: 04/13/19 09:13 Source: Patient Mode of Arrival: Ambulatory Limitations: No limitations - History of Present Illness Initial Comments: Pt presents by car from home with 48 hours of lower abdominal pains "like gas pains". Pt states she has lost her appetite and feels like she could vomit. No emesis. Had no BM for "days" but last PM had soft stool with a small amount of bright red blood. No fever. Hx of Hysterectomy but still has ovaries and a hx of ovarian cysts. Not like this. Pain with walking and moving. No urinary pain. Onset/Timin -: Days(s) Improves With: Nothing Worsens With: Nothing - Related Data Patient : No Previous Rx's Medication Instructions Recorded Albuterol Sulfate [Proair Hfa] 2 puff IH QID PRN #1 inhaler 07/14/18 Ibuprofen [Motrin 600Mg] 600 mg PO Q6H #40 tablet 04/13/19 Allergies Allergy/AdvReac Type Severity Reaction Status Date / Time Penicillins Allergy pt states Verified 04/13/19 08:51 her mother is allergic to it Travel Screening - Travel/Exposure Within Last 30 Days Have you traveled within the last 30 days?: No Review of Systems Constitutional: Denies: Chills, Fever, Weakness Eyes: Denies: Eye discharge ENT: Denies: Congestion, Ear pain Respiratory: Denies: Cough Cardiovascular: Denies: Arrhythmia, Chest pain Endocrine: Denies: Fatigue Gastrointestinal: Reports: As per HPI, Abdominal pain, Nausea Genitourinary: Denies: Abnormal menses, Dysuria, Hematuria Musculoskeletal: Denies: Arthralgia, Back pain Skin: Denies: Bruising, Rash Neurological: Denies: Confusion, Headache, Tingling Psychiatric: Denies: Anxiety Hematological/Lymphatic: Denies: Anemia Past Medical History - SOCIAL HISTORY Smoking Status: Current every day smoker Alcohol Use: None Drug Use: None - RESPIRATORY Hx Respiratory Disorders: Yes Hx Asthma: Yes Hx Pneumonia: Yes - CARDIOVASCULAR Hx Cardio Disorders: No - NEURO Hx Neuro Disorders: Yes 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)) - GI Hx GI Disorders: No - Hx Genitourinary Disorders: No - ENDOCRINE Hx Endocrine Disorders: No - MUSCULOSKELETAL Hx Musculoskeletal Disorders: No - PSYCH Hx Psych Problems: No - HEMATOLOGY/ONCOLOGY Hx Hematology/Oncology Disorders: No Family Medical History Any Significant Family History?: Yes Hx Cancer: Mother Hx Diabetes: Father Physical Exam - General General Appearance: Alert, Oriented x3, Cooperative, Moderate distress Limitations: No limitations - Head Head exam: Atraumatic Head exam detail: negative: Contusion - Eye Eye exam: Normal appearance, PERRL - ENT ENT exam: Normal exam, Mucous membranes moist - Neck Neck exam: Normal inspection, Full ROM. negative: Tenderness - Respiratory Respiratory exam: Normal lung sounds bilaterally. negative: Respiratory distress, Wheezes - Cardiovascular Cardiovascular Exam: Regular rate, Normal rhythm. negative: Tachycardia - GI/Abdominal GI/Abdominal exam: Soft, Normal bowel sounds, Guarding, Rebound, Tenderness (RLQ tenderness) - Rectal Rectal exam: Heme (-) stool, Normal inspection. negative: Fecal impaction, Tenderness - exam: Adnexal tenderness (R), Other (bimanual exam with RN at bedside. ). negative: Abnormal external exam, Adnexal mass (L), Adnexal mass (R) - Extremities Extremities exam: Normal inspection. negative: Tenderness - Back Back exam: Reports: Normal inspection - Neurological Neurological exam: Alert, Normal gait, Oriented X3 - Psychiatric Psychiatric exam: Normal affect, Normal mood - Skin Skin exam: Normal color. negative: Rash Course Vital Signs 04/13/19 08:46 Temperature 98.6 F Pulse Rate 80 Respiratory 20 Rate Blood Pressure 142/80 Pulse Ox 96 - Reevaluation(s) Reevaluation #1: 04/13/19 09:41 Seen and examined. Last meal 5PM yesterday. Pain RLQ with rebound and guarding. IV and meds for pain and nausea. Labs ordered and pt to CT. Reevaluation #2: 04/13/19 10:14 CT no appy. WBC normal and UA clean. Pt with continued nausea, pain slightly better with meds. Bimanual exam with RN present , + pain in right adenexal. Rectal no blood with soft brown stool. No impaction. + large amount of stool in colon on CT. US ordered to assess for ovarian cyst. Reevaluation #3: 04/13/19 11:53 Resting pain free. Nausea resolved. Discussed epiploic appendagitis and coco tment plan. She understands and agrees. Also Mag Citrate for constipation. Pt home with doc follow or return to the ED as needed. Reevaluation #4: 04/13/19 12:14 US normal right ovary..No other findings. Home Medical Decision Making - Data Complexity MDM Data: Labs Ordered and/or Reviewed, X-Ray Ordered and/or Reviewed - Lab Data Result diagrams: 04/13/19 09:25 04/13/19 09:25 Lab Results 04/13/19 04/13/19 Range/Units 08:55 08:55 Urine Color Yellow Urine Appearance Clear Urine pH 6.0 (5.0-8.0) Ur Specific [place] 1.010 (1.002-1.030) Urine Protein Negative (NEGATIVE) Urine Glucose (UA) Negative (NEGATIVE) Urine Ketones Negative (NEGATIVE) Urine Blood Negative (NEGATIVE) Urine Nitrite Negative (NEGATIVE) Urine Bilirubin Negative (NEGATIVE) Urine Urobilinogen 0.2 (0.20 - 1.00) E.U./dL Ur Leukocyte Esterase Negative (NEGATIVE) Urine HCG, Qual Negative (NEGATIVE) Disposition Disposition: Discharge Clinical Impression: Epiploic appendagitis Abdominal pain Qualifiers: Abdominal location: lower abdomen, unspecified Qualified Code(s): R10.30 - Lower abdominal pain, unspecified Constipation Qualifiers: Constipation type: slow transit constipation Qualified Code(s): K59.01 - Slow transit constipation Disposition: Home, Self-Care Instructions: Constipation (ED), Abdominal Pain (ED) Additional Instructions: Epiploic appendagitis is usually considered to be a self-limiting disease. This means it goes away on its own without treatment. In the meantime, you may take itvo-fzr-beslywl pain relievers, such as acetaminophen (Tylenol) or ibuprofen (Advil). Follow up with your doctor in 2-3 days. Light diet as tolerated. Return to the ED at any time as needed. Prescriptions: Ibuprofen [Motrin 600Mg] 600 mg PO Q6H #40 tablet Forms: Patient Portal Access Time of Disposition: 12:14 Quality - Quality Measures Quality Measures: N/A - Blood Pressure Screening Does Patient Have Any of the Following: No Blood Pressure Classification: Pre-Hypertensive BP Reading Systolic Measurement: 142 Diastolic Measurement: 80 Screening for High Blood Pressure: < Pre-Hypertensive BP, F/U Documented > [G8950] Pre-Hypertensive Follow-up Interventions: Follow-up with rescreen every year.
[2019-04-13 09:35] LABS: ABSOLUTE NEUTROPHIL COUNT 4.05; BASO % 0.2 % (0-6); EOS % 1.6 % (0-6); GRAN % 62.8 % (47-80); HEMATOCRIT 38.3 % (35.0-47.0); HEMOGLOBIN 12.4 gm/dl (11.6-16.0); LYMPH % 28.4 % (16-45); MEAN CELL VOLUME 89.9 fl (81-97); MEAN CORPUSCULAR HEMOGLOBIN 29.1 pg (27-33); MEAN CORPUSCULAR HGB CONC 32.4 g/dl (32-36); MEAN PLATELET VOLUME 9.4 fl (7.4-10.4); PLATELET COUNT 278 K/uL (130-400); RED BLOOD COUNT 4.26 M/uL (3.80-5.40); RED CELL DISTRIBUTION WIDTH 13.7 % (11.5-14.5); WHITE BLOOD COUNT W/O DIFF 6.4 K/uL (4.2-12.2)
[2019-04-13 09:44] LABS: BLOOD UREA NITROGEN 11 mg/dL (6-20); CREATININE 0.7 mg/dL (0.5-0.9); EST GLOMERULAR FILTRATION RATE > 60 mL/min
[2019-04-13 09:45] LABS: TOTAL PROTEIN 6.8 g/dL (6.6-8.7)
[2019-04-13 09:47] LABS: GLUCOSE,RANDOM 107 mg/dL (74-109)
[2019-04-13 09:50] LABS: ALB/GLOB RATIO 1.3 (1.1-1.8); ALBUMIN 3.9 g/dL (4.0-5.0); ALKALINE PHOSPHATASE 49 U/L (35-104); ALT/SGPT 15 U/L (<33); AST/SGOT 13 U/L (10.0-35.0)
[2019-04-13] MEDS ORDERED: KETOROLAC 30 MG/ML VIAL IVP ONE (10:11)
[2019-04-13] MEDS ORDERED: PROMETHAZINE HCL 25 MG in 0.9 % SODIUM CHLORIDE 100ML 100 ML IVPB ONE (10:12)
--- NOTE | 2019-04-13 10:20 | CT SCAN REPORT ---
EXAMINATION: CT Abdomen and Pelvis without IV Contrast EXAM DATE: 04/13/2019 9:49 AM TECHNIQUE: Standard protocol CT imaging of the abdomen and pelvis was performed without intravenous c ontrast. INDICATION: RLQ pain R/O appy COMPARISON: October 15, 2016 ENCOUNTER: Not applicable CT ABDOMEN AND PELVIS FINDINGS: Lung Bases: Included extent of the lung bases are clear. Hepatobiliary: The liver has a normal size with a smooth surface. There is no biliary dilatation and the gallbladder is unremarkable. Pancreas: The pancreas is normal. Spleen: The spleen is not enlarged. Adrenals: The adrenal glands are normal. Kidneys, Ureters, & Bladder: Both kidneys have a normal size and morphology. There is no hydronephro sis. No renal calculi are present. Both ureters have a normal course and caliber and the urinary blad vicky a normal morphology and uniform wall thickness. No ureteral or bladder calculi are identified. Gastrointestinal: The stomach and small bowel are normal with no obstruction or inflammation. The yoshi endix is normal. There is mild diverticular disease involving primarily the left colon and sigmoid se gment with no associated inflammation. However there is suspicion of mild self-limiting acute epiploi c appendagitis at the anterior left hemipelvis relating to the proximal to mid sigmoid colon. Reproductive Organs: Unremarkable Lymphatic System: There is no adenopathy within the abdomen or pelvis. Vasculature: Normal caliber abdominal aorta Peritoneum: Minimal pelvic free fluid which is likely physiologic. No free air. Abdominal wall & Musculoskeletal: No suspicious bone lesions. Assessment of the solid organs, soft tissues, and vascular structures is overall limited on noncontra st imaging, IMPRESSION: 1. Normal right lower quadrant appendix. 2. Suspect minimal self-limiting acute epiploic appendagitis in the left hemipelvis relating to the p roximal to mid sigmoid colon. There is mild diverticulosis of the colon however no acute diverticulit is changes suspected. Dictated by: Boni Alexander DO on 04/13/2019 10:04 AM. .
[2019-04-13] MEDS ORDERED: MAGNESIUM CITRATE 296 ML BTL PO ONE (11:55)
--- NOTE | 2019-04-13 12:12 | ULTRASOUND REPORT ---
EXAMINATION: Complete Transabdominal and Endovaginal Ultrasound of the Pelvis EXAM DATE: 04/13/2019 11:45 AM TECHNIQUE: Endovaginal ultrasound imaging was performed after the transabdominal exam for better res olution. INDICATION: RLQ pain r/o ovarian cyst COMPARISON: None. Transabdominal Ultrasound of the Pelvis Findings: Uterus Size: The uterus is surgically absent Ovaries: The ovaries are not adequately imaged on the transabdominal technique due to overlying bowel gas. Bilateral Adnexa: No adnexal masses or abnormal cysts are demonstrated. Other Findings: None. Transvaginal Ultrasound of the Pelvis Findings: 1. Uterus Size: The uterus is surgically absent. Transvaginal limits portions of the vaginal cuff ar e within normal limits. 2. Ovaries: The right ovary measures 3.3 x 2.1 x 1.6 cm and has normal anechoic ovarian follicles. T he left ovary is not visualized at this time. 3. Other Findings: None. Doppler Imaging: Color Doppler images show appropriate blood flow associated with the imaged right o vary. Impression: 1. Unremarkable ultrasound of the right ovary. 2. The left ovary is nonvisualized on the exam. 3. Absent uterus with unremarkable ultrasound of vaginal cuff. Dictated by: Alverto Rodriguez DO on 04/13/2019 12:06 PM. .
== END 2019-04-13 12:23 | disposition home or self-care (01) ==
LOC: ER 08:38
DX: K63.89 Other specified diseases of intestine (principal); R10.31 Right lower quadrant pain; K59.01 Slow transit constipation; R11.0 Nausea; R19.7 Diarrhea, unspecified; F17.210 Nicotine dependence, cigarettes, uncomplicated
CPT/HCPCS: 99284 ×2; 96365; 96375; 96361; 85025; 80053; 81003; 81025; 76856; 76830; 74176; J1885; J2405; J2550; J3010; J7030